=== PATIENT | male | born 1975 | race Caucasian/White ===

== ENCOUNTER → 2016-12-16 | Outpatient (CLI) | payer OTHER ==
--- NOTE | 2016-12-16 11:27 | KCIC ---
INDICATION: Low back pain which is not improving with physical therapy. Symptoms began in September 2014. Previous episodes of right leg numbness. TECHNIQUE: Sagittal T1, sagittal T2, sagittal STIR, axial T1, and axial T2 sequences are provided. No comparison is available. FINDINGS: There is no malalignment. There is mild endplate edema which appears degenerative at L4-L5. There is no worrisome marrow lesion. There is disc desiccation at L4-L5 with mild loss of disc height at this level. Conus medullaris is normal in signal intensity and in position. The numbering system assumes 5 lumbar type vertebral bodies. Findings by individual level are as follows: L1-L2, L2-L3: There is no canal or foraminal compromise. L3-L4: Minimal disc bulge and facet hypertrophy are noted without canal or foraminal compromise. L4-L5: Mild disc bulge and broad-based right paracentral protrusion are noted. Protrusion measures at least 3 cm at its base and 0.3 cm in height. There is no canal stenosis, midline AP diameter of the thecal sac is still 12 mm. There is mild right lateral recess narrowing. There is mild bilateral foraminal narrowing. L5-S1: There is no canal or foraminal compromise. IMPRESSION: Degenerative disc disease noted at L4-L5 with a superimposed shallow herniation. Mild right lateral recess narrowing is noted. Electronically signed by: Robby Champion MD (12/16/2016 11:23 AM) [facility]
== END | disposition home or self-care (01) ==
LOC: KCIC MRI 10:02
PROVIDERS: ATTEND Family Medicine
DX: M51.36 Other intervertebral disc degeneration, lumbar region (principal); M51.26 Other intervertebral disc displacement, lumbar region; R20.0 Anesthesia of skin
CPT/HCPCS: 72148

== ENCOUNTER → 2017-01-10 | Outpatient (CLI) | payer OTHER ==
[~2017-01-10] MED LIST: DEXT20CA7 PO
--- NOTE | 2017-01-10 22:01 | PAIN ---
DATE OF SERVICE: 01/10/2017 INITIAL CONSULTATION FOR PAIN CLINIC CHIEF COMPLAINT: Low back and right lower extremity pain. HISTORY OF PRESENT ILLNESS: This is a 41-year-old male who presents with history of pain since 10/2014, occurring on its own. No injury or accidents he is aware of suddenly had the pain in his low back starting in his right side and across his low back when he was sitting at his desk at work. The patient reports that over time it has gotten worse, radiating into the right posterior low back, gluteus and into the right anterior thigh and to the medial aspect of the thigh as well on the right side, worse with walking and standing, change in positions. It is a constant, sharp, stabbing, shooting pain and it becomes aching as well. Sometimes better with exercise and then after then exercise it is much worse. Pain is better with sitting or lying down. He reports it does not awaken him from sleep at night, does not affect his bowel or bladder control, but does affect his ability to walk, has fatigability in the right lower extremity. The patient reports he has had physical therapy as recently as May of this year, also doing exercises on his own and keeps doing the exercises even though the pain is there. The patient reports his disability rate from 0-10, 10 being the worst, is a 7 with family and home responsibilities, recreation, social activity, occupation, 0 with sexual behavior, 6 with self care and 3 with life support activities. The patient has tried [id number] anti-inflammatories as well as muscle relaxant and oral narcotics from his primary physician, none of which have decreased the pain significantly. He has not taken anything since June of this year. The patient reports no new motor or sensory deficits and no bowel or bladder incontinence. Again, the patient reports some fatigability in the right lower extremity greater than the left with walking for more than about 15-20 minutes, but no loss of function. PAST MEDICAL HISTORY: Significant for hearing loss and previous skin cancer on the right arm. 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 CURRENT MEDICATIONS: Include only Adderall daily. ALLERGIES: THE PATIENT IS ALLERGIC TO ERYTHROMYCIN. FAMILY HISTORY: Significant for no major medical problems or conditions that he is aware of. SOCIAL HISTORY: The patient does not smoke, has about 2 alcoholic drinks a week on average. He is and lives with his spouse, has 2 children living at home as well and lives locally in [place], [place]. REVIEW OF SYSTEMS: The patient's review of systems is positive for those items mentioned in history of present illness. All systems reviewed and otherwise negative. It is complete, full and well documented on the patient's chart. PHYSICAL EXAMINATION: VITAL SIGNS: The patient's blood pressure 137/90, pulse 81, respirations 18, temperature 98.1 degrees Fahrenheit. Height is 5 feet 8 inches, weighs 189 pounds. GENERAL: The patient is awake, alert, oriented, appropriate, very pleasant demeanor. HEENT: Head shows normocephalic, atraumatic. Extraocular movements are intact and symmetrical. Oral cavity shows mucous membranes moist and pink. Dentition is intact. NECK: Shows anterior throat supple without palpable lymphadenopathy noted. Swallow reflex is symmetrical. CHEST: Shows normal on inspection. Breath sounds are clear to auscultation bilaterally. HEART: Shows S1 and S2 clear. ABDOMEN: Soft, nontender, nondistended. No palpable organomegaly. No rebound or guarding demonstrated. BACK: Shows spine grossly midline. Normal appearing thoracic kyphosis and lumbar lordotic curvature. Lumbar paraspinous muscle shows symmetrical on inspection. On palpation shows some moderate tenderness with palpation in the middle and lower distribution, but only diffusely, somewhat more on the right than the left, but tender bilaterally and firm. No tenderness over the spinous processes , sacrum or sacroiliac regions. The patient shows good rotational motion both laterally as well as extension and flexion of lumbar spine without difficulty or pain reported. EXTREMITIES: The patient's lower extremities showed deep tendon reflexes at 2+ in the patellar, 1+ tendo calcaneus tendons. Motor exam is strong with 5/5 dorsiflexion, extension, quadriceps and hamstring flexion and equal. Peripheral pulses are 2+ posterior tibial and dorsalis pedis pulses. No peripheral edema is noted. No clubbing, no cyanosis. Lower extremities are warm and dry to touch, equal in color and appearance. Straight leg raise noted to be mildly positive on the right with some pain in the lateral thigh, but is decreased with knee flexion. Left side is negative. Gaenslen's and Eric's maneuvers are negative bilaterally. The patient is able to stand, stand on his toes without difficulty. No loss of balance, is able to walk and heel toe walk without loss of balance, walks with a normal-appearing gait, does not appear to favor the right or left lower extremity, not using any assistive devices for just a short walk in the office today. IMPRESSION: 1. This is a 41-year-old male with approximate 2-year history of increasing pain in low back, right lower extremity in a radicular fashion is noted. 2. MRI scan of lumbar spine showing L4-L5 mild disk bulge broad-based right paracentral protrusion with mild bilateral foraminal narrowing and mild right lateral recess narrowing with a superimposed shallow herniation L4-L5. 3. History of skin cancers. PLAN: Options were discussed with the patient including conservative medical management, continued physical therapy, interventional techniques and he has done physical therapy and is doing exercises currently he would like to pursue interventional techniques. We discussed a lumbar epidural steroid injection using description as well as anatomical models to describe the procedure. We will wait for preauthorization with the patient's insurance provider and once this is obtained, we will plan on lumbar epidural steroid injection at that time. XUAN MORIN MD DR: DENYS/douglas JOB#: [id number] / [id number]
== END | disposition home or self-care (01) ==
LOC: PNCL 08:43
PROVIDERS: ATTEND Anesthesiology
DX: M51.26 Other intervertebral disc displacement, lumbar region (principal); M79.604 Pain in right leg; Z85.828 Personal history of other malignant neoplasm of skin; R53.83 Other fatigue
CPT/HCPCS: 99214

== ENCOUNTER → 2017-01-24 | Outpatient (CLI) | payer OTHER ==
[~2017-01-24] MED LIST changes: +IOHEXOL 180 MG/ML 10 ML VIAL. ONE; +methylPREDNISolone ACETATE 40 MG/ML VIAL. ONE; +methylPREDNISolone ACETATE 80 MG/ML VIAL. ONE
--- NOTE | 2017-01-24 12:44 | PAIN ---
DATE OF SERVICE: 01/24/2017 DIAGNOSES: Lumbar radiculopathy with lumbar degenerative disk disease and lumbar herniated disk. HISTORY OF PRESENT ILLNESS: The patient is a 41-year-old male who returns for followup status post initial evaluation and preauthorization for lumbar epidural steroid injection. The patient has obtained this now, would like to proceed, still has pain significant in the low back and right lower extremity. The patient reports it is a 7 on a scale of 10 at its worse at this time, 5 at its least and 6 on average. The patient reports it does not awake him from sleep; however, he feels much better with lying down or sitting down, worse with walking and standing as it was previously. The patient reports no new motor or sensory deficits, no new bowel or bladder incontinence or other complaints. PHYSICAL EXAMINATION: VITAL SIGNS: The patient's blood pressure is 146/80, pulse 87, respirations 18, temperature 98.0 degrees Fahrenheit. Height is 5 feet 8 inches, weighs 187 pounds. GENERAL: The patient is awake, alert, oriented, appropriate, very pleasant demeanor. HEENT: Shows normocephalic, atraumatic. Extraocular movements are intact, symmetrical. Oral cavity, mucous membranes are moist and pink. Dentition is intact. NECK: Shows anterior throat supple without palpable lymphadenopathy noted. Swallow reflex is symmetrical. CHEST: Shows normal on inspection. Breath sounds are clear to auscultation bilaterally. HEART: Shows S1 and S2 clear. ABDOMEN: Soft, nontender, nondistended. BACK: Shows spine grossly midline. Normal appearing thoracic kyphosis and lumbar lordotic curvature. Lumbar paraspinous muscle shows some moderate tenderness to palpation bilaterally in the lower lumbar distribution, but only diffusely without radiation. EXTREMITIES: Lower extremities show deep tendon reflexes 2+ in the patellar and 1+ tendo calcaneus tendons are equal. Motor exam is strong with 5/5 dorsiflexion, extension, quadriceps and hamstring flexion. Peripheral pulses are 2+ posterior tibial distribution. No peripheral edema is noted. Options were discussed with the patient and the patient's old chart was reviewed as his current medication regimen updated. Current review of systems updated today as well. We will proceed with a lumbar epidural steroid injection with fluoroscopic guidance. Risks were discussed including but not limited to bleeding, infection, possibility of epidural hematoma and subsequent neurological compromise, dural punctures, headaches, spinal cord and/or nerve damage, side effects of steroid medication and poor results regarding pain control. The patient understands and wishes to proceed. The patient will return to clinic in approximately 2 weeks for followup, was counseled on return appointment, activity level and side effects to be aware of. DIAGNOSIS: Lumbar radiculopathy with lumbar degenerative disk disease, lumbar herniated disk. PROCEDURE: Lumbar epidural steroid injection, translaminar approach, L4-L5 level using C-arm fluoroscopic guidance under sterile prep and drape using local anesthetic. MEDICATION INJECTED: A total of 120 mg Depo-Medrol plus 10 mL preservative-free normal saline and 2 mL Isovue for contrast. CONDITION AT DISCHARGE: Stable. The patient tolerated the procedure well and had no complications. XUAN MORIN MD DR: DENYS/douglas JOB#: [id number] / [id number]
== END | disposition home or self-care (01) ==
LOC: PNCL 08:07
PROVIDERS: ATTEND Anesthesiology
DX: M51.16 Intervertebral disc disorders with radiculopathy, lumbar region (principal); Z88.1 Allergy status to other antibiotic agents
CPT/HCPCS: 62323; J1030; J1040

== ENCOUNTER → 2017-02-07 | Outpatient (CLI) | payer OTHER ==
[~2017-02-07] MED LIST changes: -IOHEXOL 180 MG/ML 10 ML VIAL. ONE; -methylPREDNISolone ACETATE 40 MG/ML VIAL. ONE; -methylPREDNISolone ACETATE 80 MG/ML VIAL. ONE
--- NOTE | 2017-02-07 09:46 | PAIN ---
DATE OF SERVICE: 02/07/2017 DATE OF SERVICE: 02/07/2017 DIAGNOSES: Lumbar radiculopathy with lumbar degenerative disk disease, lumbar herniated disk. HISTORY OF PRESENT ILLNESS: The patient is a 42-year-old male who returns for followup status post lumbar epidural steroid injection x 1. The patient reports about 65% improvement after the first injection for the first couple of weeks, the pain is reduced, but now it is beginning to come back towards baseline. The patient reports there is overall about 20% change now, but initially was doing quite well for a couple of weeks. The patient reports the pain is increasing again in the low back radiating to the left side. Dull, sharp, tight, shooting pain radiating into the right lower extremity as well as across the low back, more on the left side of the low back. The patient reports the leg is doing much better, but the back is still significantly painful. The patient reports no new motor or sensory deficits, no bowel or bladder incontinence or any other complaints. The patient reports pain is a 7 on a scale of 10 at its worst, average is about a 6, and is about a 5 today. He is sleeping well at night, 8 hours without awakening, and feels much better with lying down or sitting down. Again, the pain is worse with walking, standing, changing positions. PHYSICAL EXAMINATION: VITAL SIGNS: The patient's blood pressure 139/61, pulse is 81, respirations are 18, temperature is 98.2 degrees Fahrenheit, height is 5 feet 8 inches, weighs 186 pounds. GENERAL: The patient is awake, alert, oriented, appropriate, very pleasant demeanor. HEENT: Head shows normocephalic, atraumatic. Extraocular movements are intact and symmetrical. Oral cavity shows mucous membranes are moist and pink. Dentition is intact. NECK: Shows anterior throat supple. Swallow reflex is symmetrical. CHEST: Shows normal on inspection. Breath sounds are clear to auscultation bilaterally. HEART: Shows S1 and S2 clear. ABDOMEN: Soft, nontender, nondistended. No palpable organomegaly. No rebound or guarding demonstrated. BACK: Shows spine grossly midline. Lumbar paraspinous muscle shows symmetrical. On inspection with palpation shows some [id number] tenderness with palpation bilaterally, but without radiation. No tenderness over the spinous processes, sacrum or sacroiliac regions. The patient has full rotational motion of lumbar spine, both laterally as well as extension and flexion without difficulty. EXTREMITIES: Lower extremities showed deep tendon reflexes 2+ in the patellar, 1+ tendo-calcaneus tendons are equal. Motor exam is strong with 5/5 dorsiflexion, extension, quadriceps and hamstring flexion and are symmetrical. Peripheral pulses are 2+ posterior tibial. No peripheral edema. ASSESSMENT AND PLAN: Options were discussed with the patient and the patient's old chart was reviewed as his current medication regimen updated. Current review of systems updated today as well. We will preauthorize the patient for a second lumbar epidural steroid injection. She did very well initially with the first one with pain returning now and we will plan a lumbar epidural steroid injection again dermatomal L4-L5 with radiation to the right lower extremity significantly improved initially, but now returning and across the low back as well, as noted. The patient will return to clinic once preauthorization is obtained, will continue walking, daily stretching and strengthening exercises as he has been performing and encouraged him to increase his activity as tolerated. XUAN MORIN MD DR: DENYS/douglas JOB#: [id number] / [id number]
== END | disposition home or self-care (01) ==
LOC: PNCL 08:00
PROVIDERS: ATTEND Anesthesiology
DX: M51.16 Intervertebral disc disorders with radiculopathy, lumbar region (principal)
CPT/HCPCS: 99212

== ENCOUNTER → 2017-02-21 | Outpatient (CLI) | payer OTHER ==
[~2017-02-21] MED LIST changes: +IOHEXOL 180 MG/ML 10 ML VIAL. ONE; +methylPREDNISolone ACETATE 40 MG/ML VIAL. ONE; +methylPREDNISolone ACETATE 80 MG/ML VIAL. ONE
--- NOTE | 2017-02-21 09:07 | PAIN ---
DATE OF SERVICE: 02/21/2017 PROGRESS NOTE FOR PAIN CLINIC DIAGNOSES: Lumbar radiculopathy with lumbar degenerative disk disease and lumbar herniated disk. HISTORY OF PRESENT ILLNESS: Mr. Pacheco is a 42-year-old male who returns for followup status post lumbar epidural steroid injection x 1 with good results after the first injection about 65%, pain returning now slowly over time. Still pain in the back itself on the left side and left leg. The patient reports that it is dull, tight, shooting. It is 4 on a scale of 10, it is worse and at its least. The patient reports the pain is better with lying down or sitting down, has not awaken him from sleep at night. He is sleeping well. The patient reports this is only when he is up and standing and walking. The patient reports no new motor or sensory deficits, no new bowel or bladder incontinence or other complaints. His leg is doing much better, but still some significant pain in the back. PHYSICAL EXAMINATION: VITAL SIGNS: Today, blood pressure is 145/89, pulse 77, respirations 18, temperature 98.2 degrees Fahrenheit, height is 5 feet 8 inches, weighs 186 pounds. GENERAL: The patient is awake, alert, oriented, appropriate, very pleasant demeanor. HEENT: Head shows normocephalic, atraumatic. Extraocular movements are intact, symmetrical. Oral cavity: Mucous membranes moist and pink. Dentition is intact. NECK: Shows anterior throat supple without palpable lymphadenopathy noted. Swallow reflex is symmetrical. CHEST: Shows normal on inspection. Breath sounds are clear to auscultation bilaterally. HEART: Shows S1 and S2 clear. ABDOMEN: Soft, nontender, nondistended. BACK: Shows spine grossly midline. Normal-appearing thoracic kyphosis and lumbar lordotic curvature and lumbar paraspinous musculature, some moderate tenderness with palpation, but only diffusely without atrophy, hypertrophy. The patient shows good rotation and motion of lumbar spine bilaterally. No tenderness over the sacrum or sacroiliac regions. Lower extremities showed deep tendon reflexes are 2+ in the patellar, 1+ tendo-calcaneus, tendons are equal. Motor exam is strong with 5/5 dorsiflexion, extension, quadriceps and hamstring flexion and symmetrical. Options were discussed with the patient and the patient's old chart was reviewed as his current medication regimen updated. Current review of systems updated today as well. We will proceed with the second in the series of lumbar epidural steroid injection with fluoroscopic guidance. Risks were again discussed including, but not limited to bleeding, infection, possibility of epidural hematoma, subsequent neurologic compromise, dural puncture, headaches, spinal cord and/or nerve damage, side effects of steroid medication and poor results regarding pain control. The patient understands and wishes to proceed. The patient will return to clinic in approximately 2 weeks for followup, was counseled on return appointment, activity level and side effects to be aware of. DIAGNOSIS: Lumbar radiculopathy with lumbar degenerative disk disease, lumbar herniated disk. PROCEDURE: Lumbar epidural steroid injection in translaminar approach L4-L5 level using C-arm fluoroscopic guidance under sterile prep and drape using local anesthetic. Medication injected, total of 120 mg Depo-Medrol plus 10 mL preservative-free normal saline and 2 mL of Isovue for contrast. CONDITION AT DISCHARGE: Stable. The patient tolerated procedure well, had no complications. XUAN MORIN MD DR: DENYS/douglas JOB#: [id number] / [id number]
== END | disposition home or self-care (01) ==
LOC: PNCL 08:05
PROVIDERS: ATTEND Anesthesiology
DX: M51.16 Intervertebral disc disorders with radiculopathy, lumbar region (principal); Z88.1 Allergy status to other antibiotic agents
CPT/HCPCS: 62323; J1030; J1040